=== PATIENT | female | born 1970 ===

== ENCOUNTER 2020-03-11 18:30 | Observation (INO) ==
[2020-03-11] MEDS ORDERED: methylPREDNISolone SOD SUC 125 MG/2 ML VIAL IV STA (18:59)
[2020-03-11 20:20] LABS: Basophils % 0.3 % (0.0-0.8); Eosinophils % 0.5 % (0.00-10.9); Hematocrit 30.8 VOL% (35.7-47.0); Hemoglobin 11.8 GM/DL (12.0-16.0); Immature Granulocytes % 0.3 %; Immature Granulocytes Absolute 0.02 #; Lymphocytes % 13.4 % (21.3-54.2); Mean Corpuscular HGB Conc 38.3 GM/DL (32-36); Mean Corpuscular Volume 90.3 FL (87-102); Mean Platelet Volume 11.1 FL (9.6-12.0); Monocytes % 4.8 % (1.7-12.7); Neutrophils % 80.7 % (38.7-73.9); Platelet Count 234 T/CUMM (130-400); Red Blood Count 3.41 MC/CUMM (3.8-5.5); White Blood Count 7.3 T/CUMM (4-12)
[2020-03-11 20:35] LABS: Albumin 2.5 G/DL (3.4-5.0); Bilirubin,Total 0.9 MG/DL (0.2-1.0); Calcium 7.5 MG/DL (8.5-10.1); Osmolality,Calculated 265.7 MOS/KG (273-304); Total Protein 7.2 G/DL (6.4-8.3)
[2020-03-11 20:37] LABS: INR 1.2; PT Patient Result 12.6 SECS (9.8-11.9)
[2020-03-11] MEDS ORDERED: POTASSIUM CHLORIDE 20 MEQ TABLET PO STA (20:39)
[2020-03-11] MEDS ORDERED: MAGNESIUM SULF RIDER 2 GM in PREMIX 1 EACH IV STA (20:39)
[2020-03-11] MEDS ORDERED: MAGNESIUM SULF RIDER 2 GM in PREMIX 1 EACH IV PRN (21:24)
[2020-03-11] MEDS ORDERED: MAGNESIUM SULF RIDER 4 GM in PREMIX 1 EACH IV PRN (21:24)
[2020-03-11] MEDS ORDERED: POTASSIUM CHLORIDE 20 MEQ TABLET PO PRN (21:24)
[2020-03-11] MEDS ORDERED: ONDANSETRON 4 MG/2 ML VIAL IV PRN (21:25)
[2020-03-11] MEDS ORDERED: DOCUSATE SODIUM 100 MG CAPSULE PO PRN (21:25)
[2020-03-11] MEDS ORDERED: GLUCAGON 1 MG VIAL IM PRN (21:25)
[2020-03-11] MEDS ORDERED: hydrALAZINE 20 MG/1 ML VIAL IV PRN (21:25)
[2020-03-11] MEDS ORDERED: DEXTROSE 50% 25 GM/50 ML VIAL IV PRN (21:25)
[2020-03-11] MEDS ORDERED: ACETAMINOPHEN 325 MG TABLET PO PRN (21:25)
[2020-03-11] MEDS ORDERED: DEXTROSE 50% 25 GM/50 ML SYRINGE IV PRN (21:32)
[2020-03-11] MEDS ORDERED: ENOXAPARIN 40 MG/0.4 ML SYRINGE SUBCUT SCH (22:00)
[2020-03-12] MEDS: ASCORBIC ACID 500 MG TABLET PO SCH ×2 (00:44→08:53)
[2020-03-12] MEDS: FAMOTIDINE 20 MG TABLET PO SCH ×2 (00:44→08:53)
[2020-03-12] MEDS ORDERED: ALBUTEROL INHALER 18 GM INH SCH (01:00)
[2020-03-12] MEDS ORDERED: SODIUM CHLORIDE 0.9% 1,000 ML IV SCH (01:30)
[2020-03-12 04:36] LABS: Basophils % 0.2 % (0.0-0.8); Hematocrit 32.4 VOL% (35.7-47.0); Hemoglobin 11.9 GM/DL (12.0-16.0); Immature Granulocytes % 0.4 %; Immature Granulocytes Absolute 0.02 #; Lymphocytes # 0.4 10*3/uL (1.4-4.0); Lymphocytes % 7.5 % (21.3-54.2); Mean Corpuscular HGB Conc 36.7 GM/DL (32-36); Mean Corpuscular Volume 90.3 FL (87-102); Mean Platelet Volume 11.9 FL (9.6-12.0); Monocytes % 1.3 % (1.7-12.7); Neutrophils % 90.6 % (38.7-73.9); Platelet Count 207 T/CUMM (130-400); Red Blood Count 3.59 MC/CUMM (3.8-5.5); Red Cell Distribution Width 13.1 % (9.3-17.3); White Blood Count 4.8 T/CUMM (4-12)
[2020-03-12 04:49] LABS: Calcium 7.9 MG/DL (8.5-10.1); Osmolality,Calculated 270.8 MOS/KG (273-304)
[2020-03-12 04:59] LABS: Hypochromasia 1+; Lymphocytes 9 % (20-55); Platelet Estimate Adequate; Segmented Neutrophils 90 % (50-85); Total Cells Counted 100
[2020-03-12] MEDS: INSULIN REGULAR 100 UNIT/ML SUBCUT SCH ×2 (08:05→12:37)
[2020-03-12] MEDS ORDERED: ZINC GLUCONATE 50 MG TABLET PO SCH (09:00)
[2020-03-12] MEDS ORDERED: CETIRIZINE 10 MG TABLET PO SCH (09:00)
[2020-03-12] MEDS ORDERED: CHOLECALCIFEROL 1,000 UNIT TABLET PO SCH (09:00)
[2020-03-12 13:04] VITALS: BP 128/78
== END 2020-03-12 13:04 | disposition home or self-care (01) ==
LOC: EDBD → EDUNIT# → N.ED 18:30 → N.EDINP 18:30
PROVIDERS: ADMIT Internal Medicine; ATTEND Internal Medicine

== ENCOUNTER 2020-08-24 06:42 | Inpatient (IN) ==
[2020-08-24] MEDS ORDERED: ALBUTEROL 2.5 MG/3 ML NEB RESP TX PRN (08:37)
[2020-08-24] MEDS ORDERED: PHENYLEPHRINE DRIP 40 MG/250 ML PREMIX IV PRN (08:38)
[2020-08-24] MEDS ORDERED: ONDANSETRON 4 MG/2 ML VIAL IV PRN (08:38)
[2020-08-24 09:03] LABS: Basophils % 0.6 % (0.0-0.8); Eosinophils % 0.6 % (0.00-10.9); Hematocrit 25.1 VOL% (35.7-47.0); Hemoglobin 8.7 GM/DL (12.0-16.0); Immature Granulocytes % 0.9 %; Immature Granulocytes Absolute 0.03 #; Lymphocytes # 0.9 10*3/uL (1.4-4.0); Lymphocytes % 27.2 % (21.3-54.2); Mean Corpuscular HGB Conc 34.7 GM/DL (32-36); Mean Corpuscular Volume 96.2 FL (87-102); Mean Platelet Volume 11.1 FL (9.6-12.0); Monocytes % 8.6 % (1.7-12.7); Neutrophils % 62.1 % (38.7-73.9); Platelet Count 146 T/CUMM (130-400); Red Blood Count 2.61 MC/CUMM (3.8-5.5); Red Cell Distribution Width 13.7 % (9.3-17.3); White Blood Count 3.3 T/CUMM (4-12)
[2020-08-24 09:27] LABS: Band Neutrophils 1 % (0-10); Eosinophils 2 % (0-10); Hypochromasia 1+; Lymphocytes 27 % (20-55); Segmented Neutrophils 62 % (50-85); Total Cells Counted 100
[2020-08-24 09:28] LABS: Macrocytosis Slight; Platelet Estimate Adequate
[2020-08-24 09:34] LABS: Alanine Aminotransferase 18 U/L (13-56); Albumin 2.3 G/DL (3.4-5.0); Alkaline Phosphatase 98 U/L (45-117); Aspartate Amino Transferase 26 U/L (0-37); Bilirubin,Total < 0.39 MG/DL (0.2-1.0); Blood Urea Nitrogen 10 MG/DL (7-18); Calcium 7.5 MG/DL (8.5-10.1); Carbon Dioxide 21 MMOL/L (21-32); Estimated Glom Filtration Rate 46 ML/MIN; Glucose 150 MG/DL (74-106); Osmolality,Calculated 282.3 MOS/KG (273-304); Potassium 2.6 MMOL/L (3.5-5.1); Sodium 141 MMOL/L (136-145); Total Protein 5.9 G/DL (6.4-8.2)
[2020-08-24] MEDS ORDERED: DEXTROSE 50% 25 GM/50 ML VIAL IV PRN (10:37)
[2020-08-24] MEDS ORDERED: GLUCAGON 1 MG VIAL IM PRN (10:37)
[2020-08-24] MEDS: ENOXAPARIN 40 MG/0.4 ML SYRINGE SUBCUT SCH (11:53)
[2020-08-24] MEDS: LACTATED RINGERS 1,000 ML IV SCH ×2 (11:54→21:27)
[2020-08-24] MEDS: PANTOPRAZOLE 40 MG VIAL IV SCH (11:54)
[2020-08-24] MEDS: POTASSIUM CHLORIDE RIDER 10 MEQ/100 ML PREMIX IV SCH ×6 (11:55→17:00)
[2020-08-24] MEDS ORDERED: cloNIDine 0.3 MG/24 HR PATCH TRANSDERM SCH (15:00)
[2020-08-24 16:16] LABS: Osmolality,Calculated 277.4 MOS/KG (273-304); Potassium 3.2 MMOL/L (3.5-5.1)
[2020-08-24] MEDS ORDERED: INSULIN LISPRO 100 UNIT/ML SUBCUT SCH (16:30)
[2020-08-24] MEDS: INSULIN LISPRO 100 UNIT/ML SUBCUT SCH ×4 (18:13→21:09)
[2020-08-24] MEDS ORDERED: GABAPENTIN 50 MG/ML 30 ML/BOTTLE PO SCH (21:00)
[2020-08-24] MEDS ORDERED: LABETALOL 20 MG/4 ML SYRINGE IV ONE (21:09)
[2020-08-25] MEDS: LABETALOL 20 MG/4 ML SYRINGE IV PRN ×3 (00:49→21:45)
[2020-08-25 06:00] LABS: Basophils % 0.2 % (0.0-0.8); Eosinophils % 0.1 % (0.00-10.9); Hematocrit 26.1 VOL% (35.7-47.0); Immature Granulocytes % 0.5 %; Immature Granulocytes Absolute 0.07 #; Lymphocytes # 1.9 10*3/uL (1.4-4.0); Lymphocytes % 13.5 % (21.3-54.2); Mean Corpuscular HGB Conc 34.5 GM/DL (32-36); Mean Platelet Volume 11.4 FL (9.6-12.0); Neutrophils % 79.7 % (38.7-73.9); Platelet Count 149 T/CUMM (130-400); Red Blood Count 2.69 MC/CUMM (3.8-5.5); Red Cell Distribution Width 13.8 % (9.3-17.3)
[2020-08-25 06:02] LABS: Bilirubin,Total 0.7 MG/DL (0.2-1.0); Calcium 8.1 MG/DL (8.5-10.1); Osmolality,Calculated 281.1 MOS/KG (273-304); Potassium 3.7 MMOL/L (3.5-5.1); Total Protein 5.7 G/DL (6.4-8.2)
[2020-08-25] MEDS: LORazepam 2 MG/1 ML VIAL IV PRN ×2 (06:13→21:42)
[2020-08-25] MEDS: LACTATED RINGERS 1,000 ML IV SCH ×2 (07:17→17:10)
[2020-08-25] MEDS ORDERED: MAGNESIUM SULF RIDER 2 GM/50 ML PREMIX IV PRN (07:49)
[2020-08-25] MEDS: INSULIN LISPRO 100 UNIT/ML SUBCUT SCH ×4 (07:54→18:12)
[2020-08-25] MEDS: ENOXAPARIN 40 MG/0.4 ML SYRINGE SUBCUT SCH (09:56)
[2020-08-25] MEDS: LACTULOSE 20 GM/30 ML UDCUP PO SCH ×2 (09:56→20:33)
[2020-08-25] MEDS: PANTOPRAZOLE 40 MG VIAL IV SCH (09:56)
[2020-08-25] MEDS: THIAMINE 100 MG TABLET PO SCH (09:57)
[2020-08-25] MEDS: MULTIVITAMIN (BEROCCA) TABLET PO SCH (09:57)
[2020-08-25] MEDS: FOLIC ACID 1 MG TABLET PO SCH (09:57)
[2020-08-25] MEDS: FENOFIBRATE 145 MG TABLET PO SCH (09:57)
[2020-08-25] MEDS: POTASSIUM CHLORIDE 20 MEQ TABLET PO PRN (09:57)
[2020-08-25] MEDS: carvediloL 3.125 MG TABLET PO SCH ×2 (09:57→17:10)
[2020-08-25] MEDS: ASPIRIN CHEW 81 MG TABLET PO SCH (09:57)
[2020-08-25 11:32] LABS: Bilirubin,Urine Negative (Negative); Blood, Urine Large mg/dL (Negative); Glucose,Urine (UA) 50 mg/dL (Negative); Ketones,Urine Negative (Negative); Mucus,Urine Occasional /LPF (Occasional); Nitrite,Urine Negative (Negative); Protein,Urine 100 MG/DL; RBC,Urine 5 /HPF (0-4); Urine Appearance CLEAR (Clear); Urine Color Yellow (Yellow); Urine Specific Gravity 1.005 (1.001-1.035); Urine Urobilinogen < 2.0 EU/DL (0.2-1.0)
[2020-08-25] MEDS: PIPERACILLIN/TAZOBACTAM 3,375 MG in SODIUM CHLORIDE 0.9% 100 ML IV SCH ×2 (12:42→20:32)
[2020-08-25 13:19] LABS: Allen Test Positive
[2020-08-25 13:21] LABS: ABG Base Excess 1.6 MMOL/L (-2.5-2.5); ABG HCO3 25.8 MMOL/L (20-26); ABG Oxygen Saturation 96.2 % (95-100); ABG PCO2 42.7 MM HG (35-48); ABG PH 7.402 (7.35-7.45); ABG PO2 78.9 MM HG (80-95); ABG TCO2 24.5 MMOL/L (23-27)
[2020-08-25] MEDS ORDERED: SODIUM CHLORIDE 0.9% 500 ML IV ONE (18:21)
[2020-08-25] MEDS: SIMVASTATIN 20 MG TABLET PO SCH (20:41)
[2020-08-26] MEDS: INSULIN LISPRO 100 UNIT/ML SUBCUT SCH ×5 (00:29→23:44)
[2020-08-26] MEDS: LACTATED RINGERS 1,000 ML IV SCH ×3 (03:46→19:45)
[2020-08-26] MEDS: PIPERACILLIN/TAZOBACTAM 3,375 MG in SODIUM CHLORIDE 0.9% 100 ML IV SCH ×3 (03:57→20:31)
[2020-08-26 05:49] LABS: Basophils % 0.2 % (0.0-0.8); Eosinophils # 0.2 10*3/uL (0.0-0.87); Eosinophils % 1.5 % (0.00-10.9); Hematocrit 26.9 VOL% (35.7-47.0); Hemoglobin 8.8 GM/DL (12.0-16.0); Immature Granulocytes % 0.5 %; Immature Granulocytes Absolute 0.06 #; Lymphocytes # 2.1 10*3/uL (1.4-4.0); Lymphocytes % 15.9 % (21.3-54.2); Mean Corpuscular HGB Conc 32.7 GM/DL (32-36); Mean Platelet Volume 11.9 FL (9.6-12.0); Monocytes % 6.1 % (1.7-12.7); Neutrophils % 75.8 % (38.7-73.9); Platelet Count 135 T/CUMM (130-400); Red Blood Count 2.69 MC/CUMM (3.8-5.5); Red Cell Distribution Width 13.8 % (9.3-17.3); White Blood Count 13.1 T/CUMM (4-12)
[2020-08-26 06:32] LABS: Calcium 7.7 MG/DL (8.5-10.1); Osmolality,Calculated 283.8 MOS/KG (273-304); Potassium 3.4 MMOL/L (3.5-5.1)
[2020-08-26] MEDS ORDERED: PANTOPRAZOLE 40 MG TABLET PO SCH (09:00)
[2020-08-26] MEDS: carvediloL 3.125 MG TABLET PO SCH ×2 (09:27→17:05)
[2020-08-26] MEDS: MULTIVITAMIN (BEROCCA) TABLET PO SCH (09:27)
[2020-08-26] MEDS: ASPIRIN CHEW 81 MG TABLET PO SCH (09:27)
[2020-08-26] MEDS: THIAMINE 100 MG TABLET PO SCH (09:27)
[2020-08-26] MEDS: LACTULOSE 20 GM/30 ML UDCUP PO SCH ×2 (09:27→20:40)
[2020-08-26] MEDS: FOLIC ACID 1 MG TABLET PO SCH (09:27)
[2020-08-26] MEDS: POTASSIUM CHLORIDE 20 MEQ TABLET PO PRN ×3 (09:27→14:56)
[2020-08-26] MEDS: ENOXAPARIN 40 MG/0.4 ML SYRINGE SUBCUT SCH (09:27)
[2020-08-26] MEDS: FENOFIBRATE 145 MG TABLET PO SCH (09:27)
[2020-08-26] MEDS: LORazepam 2 MG/1 ML VIAL IV PRN ×2 (09:45→23:38)
[2020-08-26] MEDS ORDERED: lisinopriL 5 MG TABLET PO SCH (12:15)
[2020-08-26] MEDS: lisinopriL 10 MG TABLET PO SCH (13:00)
[2020-08-26] MEDS: LABETALOL 20 MG/4 ML SYRINGE IV PRN ×3 (17:05→23:35)
[2020-08-26] MEDS: SIMVASTATIN 20 MG TABLET PO SCH (20:40)
[2020-08-27] MEDS: LACTATED RINGERS 1,000 ML IV SCH (03:46)
[2020-08-27] MEDS: PIPERACILLIN/TAZOBACTAM 3,375 MG in SODIUM CHLORIDE 0.9% 100 ML IV SCH ×3 (04:34→20:10)
[2020-08-27] MEDS: INSULIN LISPRO 100 UNIT/ML SUBCUT SCH ×3 (06:07→17:45)
[2020-08-27 06:56] LABS: Albumin 1.7 G/DL (3.4-5.0); Bilirubin,Total 1.1 MG/DL (0.2-1.0); Calcium 7.8 MG/DL (8.5-10.1); Potassium 3.7 MMOL/L (3.5-5.1); Total Protein 5.4 G/DL (6.4-8.2)
[2020-08-27 07:59] LABS: Basophils % 0.3 % (0.0-0.8); Eosinophils # 0.2 10*3/uL (0.0-0.87); Eosinophils % 2.1 % (0.00-10.9); Hemoglobin 8.7 GM/DL (12.0-16.0); Immature Granulocytes % 0.9 %; Lymphocytes # 1.5 10*3/uL (1.4-4.0); Lymphocytes % 13.5 % (21.3-54.2); Mean Corpuscular HGB Conc 32.2 GM/DL (32-36); Mean Corpuscular Volume 100.4 FL (87-102); Mean Platelet Volume 11.6 FL (9.6-12.0); Monocytes % 6.2 % (1.7-12.7); Platelet Count 127 T/CUMM (130-400); Red Blood Count 2.69 MC/CUMM (3.8-5.5); Red Cell Distribution Width 13.4 % (9.3-17.3); White Blood Count 11.2 T/CUMM (4-12)
[2020-08-27 08:17] LABS: Hypochromasia 1+; Lymphocytes 13 % (20-55); Microcytosis 1+; Platelet Estimate Normal; Segmented Neutrophils 83 % (50-85); Total Cells Counted 100
[2020-08-27] MEDS: ASPIRIN CHEW 81 MG TABLET PO SCH (08:52)
[2020-08-27] MEDS: FENOFIBRATE 145 MG TABLET PO SCH (08:52)
[2020-08-27] MEDS: FOLIC ACID 1 MG TABLET PO SCH (08:52)
[2020-08-27] MEDS: carvediloL 3.125 MG TABLET PO SCH ×2 (08:53→17:39)
[2020-08-27] MEDS: lisinopriL 10 MG TABLET PO SCH (08:53)
[2020-08-27] MEDS: THIAMINE 100 MG TABLET PO SCH (08:53)
[2020-08-27] MEDS: MULTIVITAMIN (BEROCCA) TABLET PO SCH (08:53)
[2020-08-27] MEDS: PANTOPRAZOLE 40 MG VIAL IV SCH (08:54)
[2020-08-27] MEDS: POTASSIUM CHLORIDE 20 MEQ/15 ML UDCUP PER TUBE PRN (08:54)
[2020-08-27] MEDS: ENOXAPARIN 40 MG/0.4 ML SYRINGE SUBCUT SCH (08:57)
[2020-08-27] MEDS: LACTULOSE 20 GM/30 ML UDCUP PO SCH (08:57)
[2020-08-27] MEDS ORDERED: FUROSEMIDE 40 MG/4 ML VIAL IV SCH (09:00)
[2020-08-27 09:27] LABS: ABG HCO3 22.7 MMOL/L (20-26); ABG Oxygen Saturation 99.8 % (95-100); ABG PCO2 44.5 MM HG (35-48); ABG PH 7.336 (7.35-7.45); ABG TCO2 22.1 MMOL/L (23-27); Allen Test Positive
[2020-08-27] MEDS: ALBUTEROL/IPRATROPIUM 3 ML NEB RESP TX SCH ×2 (15:17→19:16)
[2020-08-27] MEDS: SIMVASTATIN 20 MG TABLET PO SCH (20:10)
[2020-08-27] MEDS: FUROSEMIDE 40 MG/4 ML VIAL IV SCH (20:10)
[2020-08-28] MEDS: INSULIN LISPRO 100 UNIT/ML SUBCUT SCH ×4 (00:30→19:19)
[2020-08-28] MEDS: ALBUTEROL/IPRATROPIUM 3 ML NEB RESP TX SCH ×4 (01:18→19:36)
[2020-08-28] MEDS: PIPERACILLIN/TAZOBACTAM 3,375 MG in SODIUM CHLORIDE 0.9% 100 ML IV SCH ×3 (03:49→20:21)
[2020-08-28 05:17] LABS: Basophils % 0.2 % (0.0-0.8); Eosinophils % 0.3 % (0.00-10.9); Hematocrit 27.9 VOL% (35.7-47.0); Hemoglobin 9.1 GM/DL (12.0-16.0); Immature Granulocytes % 0.7 %; Immature Granulocytes Absolute 0.09 #; Lymphocytes # 1.1 10*3/uL (1.4-4.0); Lymphocytes % 8.7 % (21.3-54.2); Mean Corpuscular HGB Conc 32.6 GM/DL (32-36); Mean Corpuscular Volume 102.2 FL (87-102); Mean Platelet Volume 11.1 FL (9.6-12.0); Monocytes % 8.6 % (1.7-12.7); Neutrophils % 81.5 % (38.7-73.9); Platelet Count 135 T/CUMM (130-400); Red Blood Count 2.73 MC/CUMM (3.8-5.5); Red Cell Distribution Width 13.2 % (9.3-17.3); White Blood Count 12.1 T/CUMM (4-12)
[2020-08-28 05:43] LABS: Calcium 7.9 MG/DL (8.5-10.1); Osmolality,Calculated 287.7 MOS/KG (273-304); Potassium 3.3 MMOL/L (3.5-5.1)
[2020-08-28 05:52] LABS: Eosinophils 1 % (0-10); Hypochromasia 1+; Lymphocytes 13 % (20-55); Microcytosis 1+; Segmented Neutrophils 82 % (50-85); Total Cells Counted 100
[2020-08-28 05:53] LABS: Platelet Estimate Normal
[2020-08-28] MEDS: POTASSIUM CHLORIDE 20 MEQ/15 ML UDCUP PER TUBE PRN (06:17)
[2020-08-28 06:47] LABS: ABG Base Excess -4.1 MMOL/L (-2.5-2.5); ABG HCO3 20.9 MMOL/L (20-26); ABG Oxygen Saturation 89.6 % (95-100); ABG PCO2 51.9 MM HG (35-48); ABG PH 7.258 (7.35-7.45); ABG PO2 61.9 MM HG (80-95); ABG TCO2 21.9 MMOL/L (23-27); Allen Test Positive
[2020-08-28] MEDS ORDERED: carvediloL 3.125 MG TABLET PO SCH ×2 (08:00→21:00)
[2020-08-28] MEDS ORDERED: hydrALAZINE 20 MG/1 ML VIAL IV PRN (08:09)
[2020-08-28] MEDS ORDERED: ACETAMINOPHEN 325 MG TABLET PO PRN (08:09)
[2020-08-28] MEDS ORDERED: ETOMIDATE 20 MG/10 ML VIAL IV ONE ×2 (08:12→08:30)
[2020-08-28] MEDS ORDERED: SUCCINYLCHOLINE 200 MG/10 ML VIAL ONE (08:12)
[2020-08-28] MEDS ORDERED: SUCCINYLCHOLINE 200 MG/10 ML VIAL IV ONE (08:30)
[2020-08-28] MEDS ORDERED: MAGNESIUM SULF RIDER 2 GM/50 ML PREMIX IV ONE (09:05)
[2020-08-28] MEDS: LACTULOSE 20 GM/30 ML UDCUP PO SCH (10:31)
[2020-08-28] MEDS: methylPREDNISolone SOD SUC 40 MG/1 ML VIAL IV SCH ×2 (10:31→16:17)
[2020-08-28] MEDS: FUROSEMIDE 40 MG/4 ML VIAL IV SCH (10:32)
[2020-08-28] MEDS: PANTOPRAZOLE 40 MG VIAL IV SCH (10:32)
[2020-08-28] MEDS: FENOFIBRATE 145 MG TABLET PO SCH (10:33)
[2020-08-28] MEDS: ASPIRIN CHEW 81 MG TABLET PO SCH (10:33)
[2020-08-28] MEDS: THIAMINE 100 MG TABLET PO SCH (10:33)
[2020-08-28] MEDS: ENOXAPARIN 40 MG/0.4 ML SYRINGE SUBCUT SCH (10:33)
[2020-08-28] MEDS: FOLIC ACID 1 MG TABLET PO SCH (10:33)
[2020-08-28] MEDS: MULTIVITAMIN (BEROCCA) TABLET PO SCH (10:33)
[2020-08-28 13:19] LABS: ABG Base Excess -4.9 MMOL/L (-2.5-2.5); ABG HCO3 20.2 MMOL/L (20-26); ABG Oxygen Saturation 99.4 % (95-100); ABG PCO2 37.4 MM HG (35-48); ABG PO2 197.6 MM HG (80-95); ABG TCO2 21.3 MMOL/L (23-27); Allen Test Positive; Pt O2 Delivery Device Ventilator
[2020-08-28] MEDS: VANCOMYCIN INJ 1,000 MG in SODIUM CHLORIDE 0.9% 250 ML IV SCH (16:19)
[2020-08-28] MEDS: LACTATED RINGERS 1,000 ML IV SCH (20:21)
[2020-08-28] MEDS: SIMVASTATIN 20 MG TABLET PO SCH (20:22)
[2020-08-28] MEDS: NOREPINEPHRINE 8 MG in SODIUM CHLORIDE 0.9% 242 ML IV PRN (21:06)
[2020-08-29] MEDS: INSULIN LISPRO 100 UNIT/ML SUBCUT SCH ×4 (00:12→18:00)
[2020-08-29] MEDS: methylPREDNISolone SOD SUC 40 MG/1 ML VIAL IV SCH ×3 (00:17→16:17)
[2020-08-29] MEDS: ALBUTEROL/IPRATROPIUM 3 ML NEB RESP TX SCH ×4 (00:26→19:39)
[2020-08-29] MEDS: VANCOMYCIN INJ 1,000 MG in SODIUM CHLORIDE 0.9% 250 ML IV SCH (02:48)
[2020-08-29 03:09] LABS: ABG Base Excess -10.4 MMOL/L (-2.5-2.5); ABG HCO3 15.1 MMOL/L (20-26); ABG Oxygen Saturation 98.2 % (95-100); ABG PH 7.292 (7.35-7.45); ABG PO2 128.1 MM HG (80-95); ABG TCO2 16.1 MMOL/L (23-27)
[2020-08-29] MEDS: PIPERACILLIN/TAZOBACTAM 3,375 MG in SODIUM CHLORIDE 0.9% 100 ML IV SCH ×2 (04:50→16:17)
[2020-08-29 06:51] LABS: Albumin 1.4 G/DL (3.4-5.0); Bilirubin,Total 0.8 MG/DL (0.2-1.0); Osmolality,Calculated 298.7 MOS/KG (273-304); Potassium 3.6 MMOL/L (3.5-5.1); Total Protein 5.5 G/DL (6.4-8.2)
[2020-08-29 07:17] LABS: Calcium 8.1 MG/DL (8.5-10.1); Osmolality,Calculated 300.6 MOS/KG (273-304); Potassium 3.6 MMOL/L (3.5-5.1)
[2020-08-29] MEDS: LACTULOSE 20 GM/30 ML UDCUP PO SCH (08:47)
[2020-08-29] MEDS: ENOXAPARIN 40 MG/0.4 ML SYRINGE SUBCUT SCH (08:47)
[2020-08-29] MEDS: MULTIVITAMIN (BEROCCA) TABLET PO SCH (08:48)
[2020-08-29] MEDS: PANTOPRAZOLE 40 MG VIAL IV SCH (08:48)
[2020-08-29] MEDS: ASPIRIN CHEW 81 MG TABLET PO SCH (08:48)
[2020-08-29] MEDS: FENOFIBRATE 145 MG TABLET PO SCH (08:49)
[2020-08-29] MEDS: THIAMINE 100 MG TABLET PO SCH (08:49)
[2020-08-29] MEDS: FOLIC ACID 1 MG TABLET PO SCH (08:49)
[2020-08-29] MEDS ORDERED: fentaNYL INJ 1,250 MCG in SODIUM CHLORIDE 0.9% 225 ML IV PRN (09:06)
[2020-08-29 09:20] LABS: Basophils % 0.2 % (0.0-0.8); Hematocrit 29.6 VOL% (35.7-47.0); Immature Granulocytes % 0.6 %; Immature Granulocytes Absolute 0.08 #; Lymphocytes # 1.2 10*3/uL (1.4-4.0); Lymphocytes % 9.6 % (21.3-54.2); Mean Corpuscular HGB Conc 33.8 GM/DL (32-36); Mean Corpuscular Volume 99.3 FL (87-102); Mean Platelet Volume 11.7 FL (9.6-12.0); Neutrophils % 81.6 % (38.7-73.9); Platelet Count 159 T/CUMM (130-400); Red Blood Count 2.98 MC/CUMM (3.8-5.5); Red Cell Distribution Width 13.4 % (9.3-17.3); White Blood Count 12.6 T/CUMM (4-12)
[2020-08-29] MEDS: SODIUM BICARB INJ 150 MEQ in STERILE WATER INJ 850 ML IV SCH ×2 (09:50→17:57)
[2020-08-29 09:56] LABS: Folate 11.32 NG/ML (5.38-24.0)
[2020-08-29] MEDS: ENOXAPARIN 30 MG/0.3 ML SYRINGE SUBCUT SCH (13:54)
[2020-08-29] MEDS: LACTATED RINGERS 1,000 ML IV SCH (13:55)
[2020-08-29] MEDS: NOREPINEPHRINE 8 MG in SODIUM CHLORIDE 0.9% 242 ML IV PRN (18:40)
[2020-08-29] MEDS: SIMVASTATIN 20 MG TABLET PO SCH (20:46)
[2020-08-30] MEDS: INSULIN LISPRO 100 UNIT/ML SUBCUT SCH ×5 (00:04→23:44)
[2020-08-30] MEDS: methylPREDNISolone SOD SUC 40 MG/1 ML VIAL IV SCH ×4 (00:07→23:45)
[2020-08-30] MEDS: SODIUM BICARB INJ 150 MEQ in STERILE WATER INJ 850 ML IV SCH ×2 (02:19→10:21)
[2020-08-30 03:27] LABS: Basophils % 0.1 % (0.0-0.8); Hematocrit 25.1 VOL% (35.7-47.0); Hemoglobin 8.4 GM/DL (12.0-16.0); Immature Granulocytes % 0.6 %; Immature Granulocytes Absolute 0.06 #; Lymphocytes # 0.8 10*3/uL (1.4-4.0); Mean Corpuscular HGB Conc 33.5 GM/DL (32-36); Mean Corpuscular Volume 98.4 FL (87-102); Mean Platelet Volume 11.9 FL (9.6-12.0); Monocytes % 9.5 % (1.7-12.7); Neutrophils % 81.8 % (38.7-73.9); Platelet Count 119 T/CUMM (130-400); Red Blood Count 2.55 MC/CUMM (3.8-5.5); Red Cell Distribution Width 13.2 % (9.3-17.3); White Blood Count 9.8 T/CUMM (4-12)
[2020-08-30 03:41] LABS: Calcium 7.4 MG/DL (8.5-10.1); Osmolality,Calculated 302.6 MOS/KG (273-304); Potassium 3.1 MMOL/L (3.5-5.1)
[2020-08-30 04:21] LABS: ABG Base Excess 5.8 MMOL/L (-2.5-2.5); ABG HCO3 29.7 MMOL/L (20-26); ABG Oxygen Saturation 99.7 % (95-100); ABG PCO2 42.9 MM HG (35-48); ABG PH 7.456 (7.35-7.45); ABG TCO2 27.9 MMOL/L (23-27); Allen Test Positive; Pt O2 Delivery Device Ventilator
[2020-08-30] MEDS ORDERED: POTASSIUM CHLORIDE 20 MEQ/15 ML UDCUP PO ONE (05:04)
[2020-08-30] MEDS: PIPERACILLIN/TAZOBACTAM 3,375 MG in SODIUM CHLORIDE 0.9% 100 ML IV SCH ×2 (05:27→17:01)
[2020-08-30] MEDS: ALBUTEROL/IPRATROPIUM 3 ML NEB RESP TX SCH ×4 (07:06→19:11)
[2020-08-30] MEDS: FENOFIBRATE 145 MG TABLET PO SCH (08:43)
[2020-08-30] MEDS: LACTULOSE 20 GM/30 ML UDCUP PO SCH (08:43)
[2020-08-30] MEDS: FOLIC ACID 1 MG TABLET PO SCH (08:44)
[2020-08-30] MEDS: THIAMINE 100 MG TABLET PO SCH (08:44)
[2020-08-30] MEDS: ENOXAPARIN 30 MG/0.3 ML SYRINGE SUBCUT SCH (08:44)
[2020-08-30] MEDS: carvediloL 6.25 MG TABLET PO SCH ×2 (08:44→21:10)
[2020-08-30] MEDS: MULTIVITAMIN (BEROCCA) TABLET PO SCH (08:44)
[2020-08-30] MEDS: PANTOPRAZOLE 40 MG VIAL IV SCH (08:44)
[2020-08-30] MEDS: ASPIRIN CHEW 81 MG TABLET PO SCH (08:44)
[2020-08-30] MEDS: LABETALOL 20 MG/4 ML SYRINGE IV PRN (09:33)
[2020-08-30] MEDS: SODIUM CHLORIDE 0.45% 1,000 ML IV SCH ×2 (15:19→23:37)
[2020-08-30] MEDS: SIMVASTATIN 20 MG TABLET PO SCH (21:09)
[2020-08-31] MEDS: ALBUTEROL/IPRATROPIUM 3 ML NEB RESP TX SCH ×4 (01:16→19:15)
[2020-08-31 04:45] LABS: ABG Base Excess 8.6 MMOL/L (-2.5-2.5); ABG HCO3 32.3 MMOL/L (20-26); ABG Oxygen Saturation 96.9 % (95-100); ABG PCO2 45.6 MM HG (35-48); ABG PH 7.472 (7.35-7.45); ABG PO2 84.1 MM HG (80-95); ABG TCO2 29.8 MMOL/L (23-27)
[2020-08-31] MEDS: INSULIN LISPRO 100 UNIT/ML SUBCUT SCH ×3 (05:49→17:06)
[2020-08-31] MEDS: PIPERACILLIN/TAZOBACTAM 3,375 MG in SODIUM CHLORIDE 0.9% 100 ML IV SCH ×2 (05:49→17:32)
[2020-08-31 06:29] LABS: Hematocrit 23.8 VOL% (35.7-47.0); Immature Granulocytes % 2.4 %; Immature Granulocytes Absolute 0.17 #; Lymphocytes # 0.9 10*3/uL (1.4-4.0); Lymphocytes % 12.4 % (21.3-54.2); Mean Corpuscular HGB Conc 33.6 GM/DL (32-36); Mean Corpuscular Volume 97.9 FL (87-102); Mean Platelet Volume 12.5 FL (9.6-12.0); Monocytes % 6.6 % (1.7-12.7); Neutrophils % 78.6 % (38.7-73.9); Platelet Count 97 T/CUMM (130-400); Red Blood Count 2.43 MC/CUMM (3.8-5.5)
[2020-08-31] MEDS: SODIUM CHLORIDE 0.45% 1,000 ML IV SCH ×2 (07:37→15:50)
[2020-08-31 07:42] LABS: Alanine Aminotransferase 10 U/L (13-56); Albumin 1.4 G/DL (3.4-5.0); Alkaline Phosphatase 125 U/L (45-117); Aspartate Amino Transferase 19 U/L (0-37); Bilirubin,Total < 0.39 MG/DL (0.2-1.0); Blood Urea Nitrogen 39 MG/DL (7-18); Calcium 7.2 MG/DL (8.5-10.1); Carbon Dioxide 35 MMOL/L (21-32); Estimated Glom Filtration Rate 33 ML/MIN; Glucose 171 MG/DL (74-106); Osmolality,Calculated 291.4 MOS/KG (273-304); Potassium 3.5 MMOL/L (3.5-5.1); Sodium 140 MMOL/L (136-145); Total Protein 5.2 G/DL (6.4-8.2)
[2020-08-31 07:52] LABS: Platelet Estimate Adequate; Target Cells Few
[2020-08-31] MEDS: LACTULOSE 20 GM/30 ML UDCUP PO SCH (09:23)
[2020-08-31] MEDS: methylPREDNISolone SOD SUC 40 MG/1 ML VIAL IV SCH ×2 (09:23→15:50)
[2020-08-31] MEDS: FAMOTIDINE 20 MG/2 ML VIAL IV SCH (09:23)
[2020-08-31] MEDS: POTASSIUM CHLORIDE 20 MEQ/15 ML UDCUP PER TUBE PRN ×4 (09:23→22:12)
[2020-08-31] MEDS: ENOXAPARIN 30 MG/0.3 ML SYRINGE SUBCUT SCH (09:23)
[2020-08-31] MEDS: FOLIC ACID 1 MG TABLET PO SCH (09:24)
[2020-08-31] MEDS: carvediloL 6.25 MG TABLET PO SCH ×2 (09:24→20:16)
[2020-08-31] MEDS: MULTIVITAMIN (BEROCCA) TABLET PO SCH (09:24)
[2020-08-31] MEDS: THIAMINE 100 MG TABLET PO SCH (09:24)
[2020-08-31] MEDS: FENOFIBRATE 145 MG TABLET PO SCH (09:24)
[2020-08-31] MEDS: ASPIRIN CHEW 81 MG TABLET PO SCH (09:24)
[2020-08-31] MEDS ORDERED: VANCOMYCIN INJ 1,000 MG in SODIUM CHLORIDE 0.9% 250 ML IV ONE (10:00)
[2020-08-31] MEDS: SIMVASTATIN 20 MG TABLET PO SCH (20:16)
[2020-09-01] MEDS: SODIUM CHLORIDE 0.45% 1,000 ML IV SCH ×2 (00:22→07:09)
[2020-09-01] MEDS: INSULIN LISPRO 100 UNIT/ML SUBCUT SCH ×5 (00:30→23:55)
[2020-09-01] MEDS: POTASSIUM CHLORIDE 20 MEQ/15 ML UDCUP PER TUBE PRN ×2 (00:31→02:30)
[2020-09-01] MEDS: methylPREDNISolone SOD SUC 40 MG/1 ML VIAL IV SCH ×3 (00:31→20:51)
[2020-09-01] MEDS: ALBUTEROL/IPRATROPIUM 3 ML NEB RESP TX SCH ×4 (01:04→18:34)
[2020-09-01 04:25] LABS: ABG Base Excess 5.4 MMOL/L (-2.5-2.5); ABG HCO3 28.9 MMOL/L (20-26); ABG Oxygen Saturation 98.9 % (95-100); ABG PH 7.499 (7.35-7.45); ABG PO2 191.8 MM HG (80-95); ABG TCO2 30.1 MMOL/L (23-27); Allen Test Positive; Pt O2 Delivery Device Ventilator
[2020-09-01 05:33] LABS: Eosinophils % 0.2 % (0.00-10.9); Hematocrit 26.2 VOL% (35.7-47.0); Hemoglobin 8.7 GM/DL (12.0-16.0); Immature Granulocytes % 2.1 %; Immature Granulocytes Absolute 0.12 #; Lymphocytes # 0.8 10*3/uL (1.4-4.0); Lymphocytes % 12.8 % (21.3-54.2); Mean Corpuscular HGB Conc 33.2 GM/DL (32-36); Mean Corpuscular Volume 98.1 FL (87-102); Mean Platelet Volume 12.1 FL (9.6-12.0); Monocytes % 7.5 % (1.7-12.7); Neutrophils % 77.4 % (38.7-73.9); Platelet Count 99 T/CUMM (130-400); Red Blood Count 2.67 MC/CUMM (3.8-5.5); White Blood Count 5.8 T/CUMM (4-12)
[2020-09-01 05:44] LABS: Calcium 7.4 MG/DL (8.5-10.1); Osmolality,Calculated 286.7 MOS/KG (273-304); Potassium 4.3 MMOL/L (3.5-5.1)
[2020-09-01 05:55] LABS: Hypochromasia 1+; Microcytosis 1+; Platelet Estimate Decreased
[2020-09-01] MEDS: PIPERACILLIN/TAZOBACTAM 3,375 MG in SODIUM CHLORIDE 0.9% 100 ML IV SCH (06:45)
[2020-09-01] MEDS: LACTATED RINGERS 1,000 ML IV SCH ×2 (08:25→21:12)
[2020-09-01] MEDS: cloNIDine 0.3 MG/24 HR PATCH TRANSDERM SCH ×2 (08:40→09:00)
[2020-09-01] MEDS: LACTULOSE 20 GM/30 ML UDCUP PO SCH (08:45)
[2020-09-01] MEDS: THIAMINE 100 MG TABLET PO SCH (08:45)
[2020-09-01] MEDS: ENOXAPARIN 40 MG/0.4 ML SYRINGE SUBCUT SCH (08:45)
[2020-09-01] MEDS: ASPIRIN CHEW 81 MG TABLET PO SCH (08:45)
[2020-09-01] MEDS: amLODIPine 10 MG TABLET PER TUBE SCH (08:45)
[2020-09-01] MEDS: FAMOTIDINE 20 MG/2 ML VIAL IV SCH (08:45)
[2020-09-01] MEDS: FOLIC ACID 1 MG TABLET PO SCH (08:45)
[2020-09-01] MEDS: carvediloL 6.25 MG TABLET PO SCH ×2 (08:45→20:52)
[2020-09-01] MEDS: FENOFIBRATE 145 MG TABLET PO SCH (08:45)
[2020-09-01] MEDS: MULTIVITAMIN LIQUID (CENTRUM) 60 ML BOTTLE PER TUBE SCH (12:00)
[2020-09-01] MEDS: VANCOMYCIN INJ 1,000 MG in SODIUM CHLORIDE 0.9% 250 ML IV SCH (15:05)
[2020-09-01 18:22] VITALS: BP 152/89
[2020-09-01] MEDS: SIMVASTATIN 20 MG TABLET PO SCH (20:52)
[2020-09-02] MEDS: ALBUTEROL/IPRATROPIUM 3 ML NEB RESP TX SCH ×4 (02:15→20:48)
[2020-09-02 03:42] LABS: ABG Base Excess 4.1 MMOL/L (-2.5-2.5); ABG HCO3 28.2 MMOL/L (20-26); ABG Oxygen Saturation 98.1 % (95-100); ABG PCO2 40.4 MM HG (35-48); ABG PH 7.462 (7.35-7.45); ABG PO2 107.9 MM HG (80-95); ABG TCO2 29.5 MMOL/L (23-27); Allen Test Positive; Pt O2 Delivery Device Ventilator
[2020-09-02 05:06] LABS: Eosinophils % 0.6 % (0.00-10.9); Hematocrit 26.1 VOL% (35.7-47.0); Hemoglobin 8.5 GM/DL (12.0-16.0); Immature Granulocytes % 1.9 %; Lymphocytes # 0.9 10*3/uL (1.4-4.0); Mean Corpuscular HGB Conc 32.6 GM/DL (32-36); Mean Corpuscular Volume 98.9 FL (87-102); Mean Platelet Volume 12.1 FL (9.6-12.0); Monocytes % 5.9 % (1.7-12.7); Neutrophils % 74.6 % (38.7-73.9); Platelet Count 107 T/CUMM (130-400); Red Blood Count 2.64 MC/CUMM (3.8-5.5); White Blood Count 5.3 T/CUMM (4-12)
[2020-09-02 05:07] LABS: Calcium 7.6 MG/DL (8.5-10.1); Osmolality,Calculated 289.5 MOS/KG (273-304); Potassium 4.4 MMOL/L (3.5-5.1)
[2020-09-02] MEDS: INSULIN LISPRO 100 UNIT/ML SUBCUT SCH ×4 (05:56→23:40)
[2020-09-02] MEDS: ASPIRIN CHEW 81 MG TABLET PO SCH (08:35)
[2020-09-02] MEDS: carvediloL 6.25 MG TABLET PO SCH ×2 (08:35→20:49)
[2020-09-02] MEDS: FENOFIBRATE 145 MG TABLET PO SCH (08:35)
[2020-09-02] MEDS: amLODIPine 10 MG TABLET PER TUBE SCH (08:35)
[2020-09-02] MEDS: FOLIC ACID 1 MG TABLET PO SCH (08:35)
[2020-09-02] MEDS: THIAMINE 100 MG TABLET PO SCH (08:35)
[2020-09-02] MEDS: LACTULOSE 20 GM/30 ML UDCUP PO SCH (08:36)
[2020-09-02] MEDS: FAMOTIDINE 20 MG/2 ML VIAL IV SCH (08:36)
[2020-09-02] MEDS: ENOXAPARIN 40 MG/0.4 ML SYRINGE SUBCUT SCH (08:36)
[2020-09-02] MEDS: MULTIVITAMIN LIQUID (CENTRUM) 60 ML BOTTLE PER TUBE SCH (08:37)
[2020-09-02] MEDS: methylPREDNISolone SOD SUC 40 MG/1 ML VIAL IV SCH ×2 (08:37→20:08)
[2020-09-02] MEDS: LACTATED RINGERS 1,000 ML IV SCH (12:10)
[2020-09-02] MEDS: VANCOMYCIN INJ 1,000 MG in SODIUM CHLORIDE 0.9% 250 ML IV SCH (15:38)
[2020-09-02] MEDS: SIMVASTATIN 20 MG TABLET PO SCH (20:08)
[2020-09-03] MEDS: ALBUTEROL/IPRATROPIUM 3 ML NEB RESP TX SCH ×4 (01:16→19:45)
[2020-09-03 02:45] LABS: ABG Base Excess 3.8 MMOL/L (-2.5-2.5); ABG HCO3 27.8 MMOL/L (20-26); ABG PCO2 43.7 MM HG (35-48); ABG PH 7.424 (7.35-7.45); ABG TCO2 26.4 MMOL/L (23-27)
[2020-09-03 05:10] LABS: Calcium 7.8 MG/DL (8.5-10.1); Osmolality,Calculated 289.5 MOS/KG (273-304); Potassium 4.8 MMOL/L (3.5-5.1)
[2020-09-03] MEDS: INSULIN LISPRO 100 UNIT/ML SUBCUT SCH ×3 (06:35→17:30)
[2020-09-03] MEDS: methylPREDNISolone SOD SUC 40 MG/1 ML VIAL IV SCH ×2 (08:07→20:42)
[2020-09-03] MEDS: MULTIVITAMIN LIQUID (CENTRUM) 60 ML BOTTLE PER TUBE SCH (08:08)
[2020-09-03] MEDS: FAMOTIDINE 20 MG/2 ML VIAL IV SCH (08:09)
[2020-09-03] MEDS: ENOXAPARIN 40 MG/0.4 ML SYRINGE SUBCUT SCH (08:09)
[2020-09-03] MEDS: LACTULOSE 20 GM/30 ML UDCUP PO SCH (08:09)
[2020-09-03] MEDS: THIAMINE 100 MG TABLET PO SCH (08:10)
[2020-09-03] MEDS: carvediloL 6.25 MG TABLET PO SCH ×2 (08:10→20:42)
[2020-09-03] MEDS: amLODIPine 10 MG TABLET PER TUBE SCH (08:10)
[2020-09-03] MEDS: ASPIRIN CHEW 81 MG TABLET PO SCH (08:10)
[2020-09-03] MEDS: FOLIC ACID 1 MG TABLET PO SCH (08:10)
[2020-09-03] MEDS: FENOFIBRATE 145 MG TABLET PO SCH (08:10)
[2020-09-03] MEDS: VANCOMYCIN INJ 1,000 MG in SODIUM CHLORIDE 0.9% 250 ML IV SCH (16:02)
[2020-09-03] MEDS: SIMVASTATIN 20 MG TABLET PO SCH (20:42)
[2020-09-04] MEDS: INSULIN LISPRO 100 UNIT/ML SUBCUT SCH ×4 (00:14→18:19)
[2020-09-04] MEDS: ALBUTEROL/IPRATROPIUM 3 ML NEB RESP TX SCH ×4 (01:18→19:38)
[2020-09-04] MEDS ORDERED: VANCOMYCIN INJ 1,000 MG in SODIUM CHLORIDE 0.9% 250 ML IV SCH (03:00)
[2020-09-04 04:35] LABS: ABG Base Excess 5.1 MMOL/L (-2.5-2.5); ABG HCO3 29.4 MMOL/L (20-26); ABG Oxygen Saturation 95.9 % (95-100); ABG PCO2 42.4 MM HG (35-48); ABG PH 7.459 (7.35-7.45); ABG PO2 80.2 MM HG (80-95); ABG TCO2 30.7 MMOL/L (23-27); Allen Test Positive
[2020-09-04 04:36] LABS: Basophils % 0.1 % (0.0-0.8); Eosinophils % 0.1 % (0.00-10.9); Hematocrit 23.6 VOL% (35.7-47.0); Hemoglobin 7.6 GM/DL (12.0-16.0); Lymphocytes # 1.2 10*3/uL (1.4-4.0); Lymphocytes % 11.8 % (21.3-54.2); Mean Corpuscular HGB Conc 32.2 GM/DL (32-36); Mean Corpuscular Volume 99.6 FL (87-102); Mean Platelet Volume 11.8 FL (9.6-12.0); Monocytes % 3.6 % (1.7-12.7); Neutrophils % 83.4 % (38.7-73.9); Platelet Count 138 T/CUMM (130-400); Red Blood Count 2.37 MC/CUMM (3.8-5.5); Red Cell Distribution Width 13.3 % (9.3-17.3); White Blood Count 9.9 T/CUMM (4-12)
[2020-09-04 05:01] LABS: Calcium 7.7 MG/DL (8.5-10.1); Osmolality,Calculated 290.3 MOS/KG (273-304)
[2020-09-04 06:13] LABS: Hypochromasia 1+; Microcytosis 1+; Platelet Estimate Normal
[2020-09-04] MEDS: THIAMINE 100 MG TABLET PO SCH (09:26)
[2020-09-04] MEDS: amLODIPine 10 MG TABLET PER TUBE SCH (09:26)
[2020-09-04] MEDS: FOLIC ACID 1 MG TABLET PO SCH (09:26)
[2020-09-04] MEDS: ASPIRIN CHEW 81 MG TABLET PO SCH (09:26)
[2020-09-04] MEDS: carvediloL 6.25 MG TABLET PO SCH ×2 (09:26→20:27)
[2020-09-04] MEDS: FENOFIBRATE 145 MG TABLET PO SCH (09:26)
[2020-09-04] MEDS: ENOXAPARIN 40 MG/0.4 ML SYRINGE SUBCUT SCH (09:27)
[2020-09-04] MEDS: methylPREDNISolone SOD SUC 40 MG/1 ML VIAL IV SCH (09:27)
[2020-09-04] MEDS: FAMOTIDINE 20 MG/2 ML VIAL IV SCH (09:28)
[2020-09-04] MEDS: MULTIVITAMIN LIQUID (CENTRUM) 60 ML BOTTLE PER TUBE SCH (09:29)
[2020-09-04] MEDS: LACTULOSE 20 GM/30 ML UDCUP PO SCH (09:30)
[2020-09-04] MEDS: LACTATED RINGERS 1,000 ML IV SCH (11:30)
[2020-09-04] MEDS: FUROSEMIDE 40 MG/4 ML VIAL IV SCH (20:28)
[2020-09-04] MEDS: SIMVASTATIN 20 MG TABLET PO SCH (20:28)
[2020-09-05] MEDS: ALBUTEROL/IPRATROPIUM 3 ML NEB RESP TX SCH ×3 (00:34→13:57)
[2020-09-05] MEDS: INSULIN LISPRO 100 UNIT/ML SUBCUT SCH ×3 (00:58→12:20)
[2020-09-05 04:31] LABS: Calcium 8.1 MG/DL (8.5-10.1); Potassium 4.1 MMOL/L (3.5-5.1)
[2020-09-05] MEDS ORDERED: PANTOPRAZOLE 40 MG TABLET PO SCH (09:00)
[2020-09-05] MEDS: ASPIRIN CHEW 81 MG TABLET PO SCH (09:35)
[2020-09-05] MEDS: LACTULOSE 20 GM/30 ML UDCUP PO SCH (09:35)
[2020-09-05] MEDS: carvediloL 6.25 MG TABLET PO SCH (09:35)
[2020-09-05] MEDS: FENOFIBRATE 145 MG TABLET PO SCH (09:35)
[2020-09-05] MEDS: MULTIVITAMIN LIQUID (CENTRUM) 60 ML BOTTLE PER TUBE SCH (09:35)
[2020-09-05] MEDS: ENOXAPARIN 40 MG/0.4 ML SYRINGE SUBCUT SCH (09:35)
[2020-09-05] MEDS: THIAMINE 100 MG TABLET PO SCH (09:35)
[2020-09-05] MEDS: FOLIC ACID 1 MG TABLET PO SCH (09:35)
[2020-09-05] MEDS: amLODIPine 10 MG TABLET PER TUBE SCH (09:35)
[2020-09-05] MEDS: FUROSEMIDE 40 MG/4 ML VIAL IV SCH (09:36)
[2020-09-06] MEDS ORDERED: VANCOMYCIN INJ 1,000 MG in SODIUM CHLORIDE 0.9% 250 ML IV SCH (03:00)
== END 2020-09-05 17:50 | disposition home or self-care (01) | DRG 917 ==
LOC: SUATTDRO 08:34 → N.ICU 08:34
PROVIDERS: ADMIT Internal Medicine; ATTEND Internal Medicine

== ENCOUNTER 2020-12-30 16:39 | Inpatient (IN) ==
[2020-12-30] MEDS ORDERED: hydrALAZINE 20 MG/1 ML VIAL IV STA (17:47)
[2020-12-30] MEDS ORDERED: ACETAMINOPHEN 325 MG TABLET PO PRN (18:11)
[2020-12-30] MEDS ORDERED: hydrALAZINE 20 MG/1 ML VIAL IV PRN (18:11)
[2020-12-30] MEDS ORDERED: ONDANSETRON 4 MG/2 ML VIAL IV PRN (18:11)
[2020-12-30] MEDS ORDERED: DEXTROSE 50% 25 GM/50 ML VIAL IV PRN (18:11)
[2020-12-30] MEDS ORDERED: GLUCAGON 1 MG VIAL IM PRN (18:11)
[2020-12-30] MEDS: INSULIN REGULAR 100 UNIT/ML SUBCUT SCH (22:24)
[2020-12-30] MEDS ORDERED: INFLUENZA VIRUS VACCINE 0.5 ML SYRINGE IM ONE (22:28)
[2020-12-31 05:17] LABS: Basophils % 0.6 % (0.0-0.8); Eosinophils # 0.6 10*3/uL (0.0-0.87); Eosinophils % 8.7 % (0.00-10.9); Hematocrit 29.1 VOL% (35.7-47.0); Hemoglobin 9.5 GM/DL (12.0-16.0); Immature Granulocytes % 0.3 %; Immature Granulocytes Absolute 0.02 #; Lymphocytes # 1.7 10*3/uL (1.4-4.0); Lymphocytes % 25.7 % (21.3-54.2); Mean Corpuscular HGB Conc 32.6 GM/DL (32-36); Mean Corpuscular Volume 95.4 FL (87-102); Mean Platelet Volume 10.6 FL (9.6-12.0); Neutrophils % 57.7 % (38.7-73.9); Platelet Count 239 T/CUMM (130-400); Red Blood Count 3.05 MC/CUMM (3.8-5.5); Red Cell Distribution Width 13.2 % (9.3-17.3); White Blood Count 6.5 T/CUMM (4-12)
[2020-12-31 05:22] LABS: PT Patient Result 11.1 SECS (10.5-12.0)
[2020-12-31 05:40] LABS: Albumin 1.3 G/DL (3.4-5.0); Bilirubin,Total 0.4 MG/DL (0.20-1.00); Osmolality,Calculated 286.7 MOS/KG (273-304); Potassium 3.3 MMOL/L (3.5-5.1); Total Protein 6.2 G/DL (6.4-8.2)
[2020-12-31 06:23] LABS: Protein/Creatinine Ratio,Urine 12.9 RATIO
[2020-12-31] MEDS ORDERED: POTASSIUM CHLORIDE 20 MEQ TABLET PO ONE (08:24)
[2020-12-31] MEDS: INSULIN REGULAR 100 UNIT/ML SUBCUT SCH ×4 (08:32→20:43)
[2020-12-31] MEDS: PANTOPRAZOLE 40 MG TABLET PO SCH (08:58)
[2020-12-31] MEDS: HEPARIN 5,000 UNIT/1 ML VIAL SUBCUT SCH ×2 (14:58→21:43)
[2020-12-31] MEDS: hydrALAZINE 25 MG TABLET PO SCH ×2 (14:59→20:59)
[2020-12-31] MEDS: SPIRONOLACTONE 25 MG TABLET PO SCH (14:59)
[2020-12-31] MEDS: FUROSEMIDE 20 MG/2 ML VIAL IV SCH (17:30)
[2020-12-31 20:50] LABS: Neutrophils,Peritoneal Fluid 7 %; RBC,Peritoneal Fluid 27 T/CUMM
[2020-12-31] MEDS: PROPRANOLOL 10 MG TABLET PO SCH (20:59)
[2020-12-31] MEDS ORDERED: SIMVASTATIN 20 MG TABLET PO SCH (21:00)
[2020-12-31] MEDS ORDERED: AMITRIPTYLINE 25 MG TABLET PO SCH (21:00)
[2021-01-01] MEDS: HEPARIN 5,000 UNIT/1 ML VIAL SUBCUT SCH (05:23)
[2021-01-01 06:28] LABS: Basophils % 0.5 % (0.0-0.8); Eosinophils # 0.7 10*3/uL (0.0-0.87); Eosinophils % 11.2 % (0.00-10.9); Hematocrit 26.6 VOL% (35.7-47.0); Hemoglobin 8.7 GM/DL (12.0-16.0); Immature Granulocytes % 0.2 %; Immature Granulocytes Absolute 0.01 #; Lymphocytes # 2.2 10*3/uL (1.4-4.0); Mean Corpuscular HGB Conc 32.7 GM/DL (32-36); Mean Corpuscular Volume 95.7 FL (87-102); Mean Platelet Volume 10.4 FL (9.6-12.0); Monocytes % 7.8 % (1.7-12.7); Neutrophils % 43.3 % (38.7-73.9); Platelet Count 207 T/CUMM (130-400); Red Blood Count 2.78 MC/CUMM (3.8-5.5); Red Cell Distribution Width 13.3 % (9.3-17.3); White Blood Count 5.9 T/CUMM (4-12)
[2021-01-01 06:58] LABS: Eosinophils 11 % (0-10); Hypochromasia Slight; Lymphocytes 29 % (20-55); Nucleated Red Blood Cells 1 (0-5); Platelet Estimate Normal; Segmented Neutrophils 54 % (50-85); Total Cells Counted 100
[2021-01-01 07:02] LABS: Calcium 7.8 MG/DL (8.5-10.1); Osmolality,Calculated 285.8 MOS/KG (273-304); Potassium 3.3 MMOL/L (3.5-5.1)
[2021-01-01] MEDS: INSULIN REGULAR 100 UNIT/ML SUBCUT SCH ×2 (07:35→11:36)
[2021-01-01 08:17] VITALS: BP 157/87
[2021-01-01] MEDS: SPIRONOLACTONE 25 MG TABLET PO SCH (08:42)
[2021-01-01] MEDS: PANTOPRAZOLE 40 MG TABLET PO SCH (08:42)
[2021-01-01] MEDS: PROPRANOLOL 10 MG TABLET PO SCH (08:42)
[2021-01-01] MEDS: FUROSEMIDE 20 MG/2 ML VIAL IV SCH (08:42)
[2021-01-01] MEDS: hydrALAZINE 25 MG TABLET PO SCH (08:42)
[2021-01-01] MEDS ORDERED: lisinopriL 20 MG TABLET PO SCH (09:00)
[2021-01-01] MEDS ORDERED: SERTRALINE 100 MG TABLET PO SCH (09:00)
[2021-01-01] MEDS ORDERED: FOLIC ACID 1 MG TABLET PO SCH (09:00)
[2021-01-01] MEDS ORDERED: ASPIRIN CHEW 81 MG TABLET PO SCH (09:00)
[2021-01-01] MEDS ORDERED: sitaGLIPtin 25 MG TABLET PO SCH (09:00)
[2021-01-01] MEDS ORDERED: FENOFIBRATE 145 MG TABLET PO SCH (09:00)
[2021-01-01] MEDS ORDERED: POTASSIUM CHLORIDE 20 MEQ TABLET PO ONE (11:00)
== END 2021-01-01 11:57 | disposition home or self-care (01) | DRG 433 ==
LOC: EDUNIT# → EDBD → N.EDINP 16:39 → N.ED 16:39 → SUATTDRO 18:11 → N.EDINP 22:13 → N.5E 22:38
PROVIDERS: ADMIT Internal Medicine; ATTEND Internal Medicine

== ENCOUNTER 2022-05-10 13:05 | Observation (INO) ==
[2022-05-10] MEDS ORDERED: SODIUM CHLORIDE 0.9% 1,000 ML IV STA ×2 (13:23→14:25)
[2022-05-10 13:34] LABS: Basophils % 0.5 % (0.0-0.8); Eosinophils # 0.6 10*3/uL (0.0-0.87); Eosinophils % 8.6 % (0.00-10.9); Hematocrit 32.3 VOL% (35.7-47.0); Hemoglobin 10.6 GM/DL (12.0-16.0); Immature Granulocytes % 0.2 %; Immature Granulocytes Absolute 0.01 #; Lymphocytes % 30.5 % (21.3-54.2); Mean Corpuscular HGB Conc 32.8 GM/DL (32-36); Mean Corpuscular Volume 97.6 FL (87-102); Mean Platelet Volume 10.6 FL (9.6-12.0); Monocytes # 0.4 10*3/uL (0.11-0.8); Monocytes % 5.5 % (1.7-12.7); Neutrophils % 54.7 % (38.7-73.9); Platelet Count 185 T/CUMM (130-400); Red Blood Count 3.31 MC/CUMM (3.8-5.5); Red Cell Distribution Width 12.6 % (9.3-17.3)
[2022-05-10 14:00] LABS: Bacteria,Urine Occasional /HPF (Few); Urine Appearance Clear (Clear); Urine Color Yellow (Yellow)
[2022-05-10 14:01] LABS: Bilirubin,Urine Negative (Negative); Glucose,Urine (UA) 250 mg/dL (Negative); Ketones,Urine Negative (Negative); Nitrite,Urine Negative (Negative); Protein,Urine >=300 mg/dL (Negative)
[2022-05-10 14:02] LABS: Blood, Urine Small mg/dL (Negative); Urine Urobilinogen 0.2 eU/dL (<2.0)
[2022-05-10 14:17] LABS: Alanine Aminotransferase 10 U/L (13-56); Albumin 2.1 G/DL (3.4-5.0); Alkaline Phosphatase 93 U/L (45-117); Aspartate Amino Transferase 13 U/L (0-37); Bilirubin,Total < 0.39 MG/DL (0.20-1.00); Blood Urea Nitrogen 25 MG/DL (7-18); Calcium 7.5 MG/DL (8.5-10.1); Carbon Dioxide 25 MMOL/L (21-32); Chloride 114 MMOL/L (98-107); Glucose 127 MG/DL (74-106); Osmolality,Calculated 295.6 MOS/KG (273-304); Potassium 3.5 MMOL/L (3.5-5.1); Sodium 146 MMOL/L (136-145); Total Protein 5.3 G/DL (6.4-8.2)
[2022-05-10 14:44] LABS: Sedimentation Rate-Westergren 102 MM/HR (0-30)
[2022-05-10] MEDS ORDERED: ZALEPLON 5 MG CAPSULE PO PRN (17:20)
[2022-05-10] MEDS ORDERED: hydrALAZINE 20 MG/1 ML VIAL IV PRN (17:20)
[2022-05-10] MEDS ORDERED: NICOTINE 21 MG/24 HR PATCH TRANSDERM PRN (17:20)
[2022-05-10] MEDS ORDERED: ACETAMINOPHEN 325 MG TABLET PO PRN (17:20)
[2022-05-10] MEDS ORDERED: ONDANSETRON 4 MG/2 ML VIAL IV PRN (17:20)
[2022-05-10] MEDS ORDERED: guaiFENesin/DM ER 600-30 MG TABLET PO PRN (17:20)
[2022-05-10] MEDS ORDERED: diphenhydrAMINE CAP 25 MG CAPSULE PO PRN (17:20)
[2022-05-10] MEDS ORDERED: ALBUTEROL/IPRATROPIUM 3 ML NEB RESP TX PRN (17:20)
[2022-05-10] MEDS: SODIUM CHLORIDE 0.9% 1,000 ML IV SCH (17:40)
[2022-05-11 06:30] LABS: Basophils % 0.3 % (0.0-0.8); Eosinophils # 0.7 10*3/uL (0.0-0.87); Eosinophils % 10.6 % (0.00-10.9); Hematocrit 28.9 VOL% (35.7-47.0); Hemoglobin 9.6 GM/DL (12.0-16.0); Immature Granulocytes % 0.2 %; Immature Granulocytes Absolute 0.01 #; Lymphocytes % 32.1 % (21.3-54.2); Mean Corpuscular HGB Conc 33.2 GM/DL (32-36); Mean Platelet Volume 10.4 FL (9.6-12.0); Monocytes # 0.4 10*3/uL (0.11-0.8); Monocytes % 6.1 % (1.7-12.7); Neutrophils % 50.7 % (38.7-73.9); Platelet Count 158 T/CUMM (130-400); Red Blood Count 2.98 MC/CUMM (3.8-5.5); Red Cell Distribution Width 12.6 % (9.3-17.3)
[2022-05-11 06:48] LABS: Calcium 7.8 MG/DL (8.5-10.1); Osmolality,Calculated 288.7 MOS/KG (273-304); Potassium 2.7 MMOL/L (3.5-5.1)
[2022-05-11] MEDS: SODIUM CHLORIDE 0.9% 1,000 ML IV SCH (07:45)
[2022-05-11] MEDS ORDERED: POTASSIUM CHLORIDE 20 MEQ TABLET PO ONE (08:31)
[2022-05-11] MEDS ORDERED: MAGNESIUM SULF RIDER 2 GM/50 ML PREMIX IV ONE (08:32)
[2022-05-11] MEDS ORDERED: carvediloL 6.25 MG TABLET PO SCH (09:00)
[2022-05-11] MEDS ORDERED: PANTOPRAZOLE 40 MG TABLET PO SCH (09:00)
[2022-05-11] MEDS ORDERED: SPIRONOLACTONE 50 MG TABLET PO SCH (09:00)
[2022-05-11] MEDS ORDERED: SERTRALINE 100 MG TABLET PO SCH (09:00)
[2022-05-11 11:17] VITALS: BP 112/64
== END 2022-05-11 12:55 | disposition home or self-care (01) ==
LOC: EDUNIT# → EDBD → N.ED 13:05 → N.EDINP 13:05 → N.2W 18:56
PROVIDERS: ADMIT Internal Medicine; ATTEND Internal Medicine